=== PATIENT | female | born 1965 | race Caucasian/White ===

== ENCOUNTER 2021-05-21 11:15 | Emergency (ER) | payer OTHER ==
[2021-05-21 11:45] VITALS: BP 119/72; PULSE 72; TEMP 97.7; BMI 39.8
== END 2021-05-21 14:14 | disposition home or self-care (01) ==
LOC: FER 11:15
DX: R41.82 Altered mental status, unspecified (principal); E11.649 Type 2 diabetes mellitus with hypoglycemia without coma
CPT/HCPCS: 82962; 99283-25

== ENCOUNTER 2021-11-03 19:54 | Emergency (ER) | payer OTHER ==
[2021-11-03 20:27] VITALS: BP 142/85; PULSE 85; TEMP 98.8; BMI 40.0
[2021-11-03] MEDS ORDERED: ACETAMINOPHEN 500 MG TABLET (FP) PO ONE (22:07)
[2021-11-03] MEDS ORDERED: ACETAMINOPHEN 500 MG TABLET (FP) ONE (22:17)
== END 2021-11-03 22:47 | disposition home or self-care (01) ==
LOC: FER 19:54
DX: S83.92XA Sprain of unspecified site of left knee, initial encounter (principal); X50.0XXA Overexertion from strenuous movement or load, initial encounter
CPT/HCPCS: 73560-TC-LT-FY; 99283-25

== ENCOUNTER 2022-02-07 13:10 | Emergency (ER) | payer OTHER ==
[2022-02-07] MEDS ORDERED: ACETAMINOPHEN 325 MG TABLET (FP) PO ONE (13:16)
[2022-02-07] MEDS ORDERED: KETOROLAC TROMETHAMINE 30 MG/1 ML VIAL IM ONE (13:16)
[2022-02-07] MEDS ORDERED: ACETAMINOPHEN 325 MG TABLET (FP) ONE (13:26)
[2022-02-07] MEDS ORDERED: KETOROLAC TROMETHAMINE 30 MG/1 ML VIAL ONE (13:26)
[2022-02-07 13:39] VITALS: BP 126/72; PULSE 94; RESP 18; TEMP 98.6; BMI 39.6
== END 2022-02-07 14:28 | disposition home or self-care (01) ==
LOC: FER 13:10
PROC: 3E023GC Introduction of Other Therapeutic Substance into Muscle, Percutaneous Approach (ICD-10-PCS; principal; 2022-02-07)
DX: S89.92XA Unspecified injury of left lower leg, initial encounter (principal); W07.XXXA Fall from chair, initial encounter
CPT/HCPCS: 73562-TC-LT-FY; 99284-25

== ENCOUNTER 2022-09-14 14:38 | Emergency (ER) | payer OTHER ==
[2022-09-14 15:08] VITALS: PULSE 79; TEMP 98.1; BMI 39.6
[2022-09-14 15:45] LABS: ALBUMIN 3.1 g/dl (3.4-5.0); BILIRUBIN,TOTAL 0.6 mg/dl (0.2-1); CALCIUM 8.7 mg/dl (8.5-10); CREATININE 0.6 mg/dl (0.55-1.3); TOT PROT 6.8 g/dl (6.4-8.2)
[2022-09-14 16:01] LABS: EPITHELIAL CELLS FEW /hpf
[2022-09-14 17:43] LABS: BASO % 0.4 % (0-2.0); EOS % 0.5 % (0-4.5); HEMATOCRIT 44.5 % (32.4-45.2); HEMOGLOBIN 14.6 GM/dL (10.7-15.3); LYMPH % 23.3 % (8-40); MCH 29.1 pg (25.7-33.7); MCHC 32.7 g/dl (32.0-36.0); MEAN CELL VOLUME 88.9 fl (80-96); MEAN PLT VOLUME 8.5 fl (7.5-11.1); MONO % 10.1 % (3.8-10.2); NEUT % 65.7 % (42.8-82.8); PLATELET COUNT 221 10^3/uL (134-434); RDW 14.9 % (11.6-15.6); WHITE BLOOD COUNT 7.6 K/mm3 (4.0-10.0)
[2022-09-14 18:55] VITALS: BP 126/74; RESP 16
== END 2022-09-14 18:45 | disposition home or self-care (01) ==
LOC: FER 14:38
DX: E11.649 Type 2 diabetes mellitus with hypoglycemia without coma (principal)
CPT/HCPCS: 36415; 71045-TC-FY; 80053; 81003; 81015; 82962; 84484; 85025; 93005; 99285-25

== ENCOUNTER 2024-03-20 09:07 | Emergency (ER) | payer OTHER ==
[2024-03-20 09:15] VITALS: BP 125/70; PULSE 86; RESP 16; BMI 39.6
[2024-03-20] MEDS ORDERED: ACETAMINOPHEN 500 MG TABLET (FP) ONE (09:48)
[2024-03-20] MEDS ORDERED: DIPHTH,PERTUSS(ACELL),TET 0.5 ML DISP.SYRIN IM ONE (09:49)
[2024-03-20] MEDS: ACETAMINOPHEN 500 MG TABLET (FP) PO ONE (09:50)
[2024-03-20] MEDS: DIPHTH,PERTUSS(ACELL),TET 0.5 ML DISP.SYRIN IM ONE (10:26)
== END 2024-03-20 11:28 | disposition home or self-care (01) ==
LOC: FER 09:07
PROC: 3E0234Z Introduction of Serum, Toxoid and Vaccine into Muscle, Percutaneous Approach (ICD-10-PCS; principal; 2024-03-20)
DX: S00.83XA Contusion of other part of head, initial encounter (principal); S80.12XA Contusion of left lower leg, initial encounter; S80.211A Abrasion, right knee, initial encounter; M54.6 Pain in thoracic spine; W01.198A Fall on same level from slipping, tripping and stumbling with subsequent striking against other object, initial encounter; Z23 Encounter for immunization
CPT/HCPCS: 72070-TC-FY; 73560-TC-LT-FY; 73560-TC-RT-FY; 73590-TC-LT-FY; 90471; 90715; 99284-25